=== PATIENT | female | born 1960 | race Hispanic/Latino ===

== ENCOUNTER → 2017-06-01 | Outpatient (CLI) | payer BC ==
--- NOTE | 2017-06-01 09:52 | Diagnostic Imaging Report ---
Left knee MRI without contrast. History: Knee pain. Sprain. Medial collateral ligament sprain. Fall. Decreased range of motion. Comparison: None. Technique: Multiplanar multi-sequence MRI of the knee without contrast. Findings: Medial compartment: There is a complex medial meniscus tear involving the posterior horn and body segments with a radial component at the posterior root best seen on coronal series 5 image 18. The medial meniscus is subluxed to the periphery. There is articular cartilage fraying in the procedure in the medial compartment with underlying bone marrow edema most pronounced at the periphery of the medial tibial plateau. There are peripheral marginal osteophytes. There is a high-grade partial tear involving the proximal medial collateral ligament best seen on coronal series 5 image 14 through 17. Lateral compartment: There is degeneration and fraying of the lateral meniscus. No lateral meniscus tear is seen. The lateral compartmental articular cartilage surfaces are thinned with region of fraying and fissuring. There are peripheral marginal osteophytes. The edema at the lateral femoral condyle extending more proximally along the distal shaft of the lateral femur. This is likely due to a contusion/stress response. No definite cortical fracture is seen. Intercondylar notch: The ACL and PCL are intact. Patellofemoral compartment: No chondromalacia or patellar dislocation. Extensor mechanism: The quadriceps and patellar tendons are normal. Other findings: There is a joint effusion and synovitis. There is no subluxation or avascular necrosis. IMPRESSION: Complex medial meniscus tear with degenerative arthrosis in the medial compartment of the knee. Additionally, there is a high-grade partial tear involving the proximal medial collateral ligament. Degeneration of the lateral meniscus with mild degenerative arthrosis. Bone marrow edema at the lateral femoral condyle extending more proximally along the distal shaft of the femur likely due to a contusion/stress response. Signed by: Dr. Jan Cooley M.D. on 06/01/2017 9:48 AM
== END ==
LOC: MRI 08:17
PROVIDERS: ATTEND Specialist
DX: S83.412A Sprain of medial collateral ligament of left knee, initial encounter (principal)

== ENCOUNTER → 2017-08-04 | Day surgery (SDC) | payer BC ==
[~2017-08-04] MED LIST: ALEVE220 M1 PO; BUPIVACAINE 0.5%/EPI 30 ML SDV INJ ONE; CEFAZOLIN SOD 2 GM/D5W 50ML 50 ML IV ONE; DEXAMETHASONE SOD PHOS INJ 4 MG/ML VIAL ONE; FENTANYL CITRATE/PF 100MCG/2 ML INJ ONE; IBUPROFEN200 MG PO; LIDOCAINE HCL 2% LOCAL INJ 5 ML SDV VIAL INJ ONE; MIDAZOLAM HCL 2 MG/2 ML VIAL ONE; ONDANSETRON HCL INJ 2 MG/ML VIAL ONE; PROPOFOL IV EMULSION 10 MG/ML 20 ML VIAL ONE; SEVOFLURANE INHAL SOLN 250 ML PEN BTL ONE
--- OUTSIDE RECORDS SUMMARY | 2017-08-04 05:46 | XMS REPORT ---
Author Author [facility] Address Unknown Phone Unavailable Care Team Providers Care Underwear Hemmer Name Role Phone ASIM FISHER Unavailable Unavailable Problems This patient has no known problems. Allergies, Adverse Reactions, Alerts This patient has no known allergies or adverse reactions. Medications This patient has no known medications. Results Test Description Test Time Test Comments Text Results Atomic Results Result Comments MRI KNEE LEFT WO [place] [address] Patient Name: PRACHI GUILLORY MR #: [id number] : 1960 Age/Sex: 57/F Req #: [id number] Adm Physician: Ordered by: ASIM FISHER MD Report #: [id number] Location: MRI Room/Bed: Procedure: [id number] MRI/MRI KNEE LEFT WO Exam Date: Exam Time: REPORT STATUS: Signed Left knee MRI without contrast. History: Knee pain. Sprain. Medial collateral ligament sprain. Fall. Decreased range of motion. Comparison: None. Technique: Multiplanar multi-sequence MRI of the knee without contrast. Findings: Medial compartment: There is a complex medial meniscus tear involving the posterior horn and body segments with a radial component at the posterior root best seen on coronal series 5 image 18. The medial meniscus is subluxed to the periphery. There is articular cartilage fraying in the procedure in the medial compartment with underlying bone marrow edema most pronounced at the periphery of the medial tibial plateau. There are peripheral marginal osteophytes. There is a high- grade partial tear involving the proximal medial collateral ligament best seen on coronal series 5 image 14 through 17. Lateral compartment: There is degeneration and fraying of the lateral meniscus. No lateral meniscus tear is seen. The lateral compartmental articular cartilage surfaces are thinned with region of fraying and fissuring. There are peripheral marginal osteophytes. The edema at the lateral femoral condyle extending more proximally along the distal shaft of the lateral femur. This is likely due to a contusion/stress response. No definite cortical fracture is seen. Intercondylar notch: The ACL and PCL are intact. Patellofemoral compartment: No chondromalacia or patellar dislocation. Extensor mechanism : The quadriceps and patellar tendons are normal. Other findings: There is a joint effusion and synovitis. There is no subluxation or avascular necrosis. IMPRESSION: Complex medial meniscus tear with degenerative arthrosis in the medial compartment of the knee. Additionally, there is a high-grade partial tear involving the proximal medial collateral ligament. Degeneration of the lateral meniscus with mild degenerative arthrosis. Bone marrow edema at the lateral femoral condyle extending more proximally along the distal shaft of the femur likely due to a contusion/ stress response. Signed by: Dr. Jan Cooley M.D. on 06/01/2017 9:48 AM Dictated By: JAN COOLEY MD, MD 7 Transcribed By: ANA on 06/01/17947 COPY TO: ASIM FISHER MD
--- NOTE | 2017-08-04 10:11 | Operative Report ---
DATE OF PROCEDURE: August 04, 2017 PREOPERATIVE DIAGNOSES 1. Left knee medial meniscus tear. 2. Left knee degenerative joint disease of the knee. POSTOPERATIVE DIAGNOSES 1. Left knee medial meniscus tear. 2. Left knee degenerative joint disease of the knee. 3. Left knee symptomatic medial shelf plica. OPERATIONS/PROCEDURES PERFORMED 1. The patient underwent a left knee examination under anesthesia. 2. Left knee arthroscopy. 3. Left knee partial medial meniscectomy. 4. Left knee chondroplasty of the medial femoral condyle, medial tibia plateau, patella, and trochlea, as well as resection of a medial shelf plica. [employer]Y SPECIALIST: None. ANESTHESIA: General endotracheal intubation anesthesia. IV FLUIDS: Per the anesthesia record. BRIEF DESCRIPTION OF THE PATIENT'S OPERATIVE PROCEDURE: Ms. Mccarty was taken to the operating room and placed in the supine position on the operating table. Following induction of general anesthesia, as well as endotracheal intubation, the patient's left lower extremity was examined under anesthesia. She was found to have a mild effusion within the knee joint, but otherwise a ligamentously stable knee. The patient's lower extremity was prepped and draped in a standard surgical fashion. A 2-portal technique was used to provide this patient arthroscopic evaluation of the knee joint. Examination of the suprapatellar pouch, medial and lateral gutters found no evidence of loose bodies. There was, however, evidence of chondromalacia of the patellar and trochlear surfaces. The scope was advanced in the medial compartment. Examination of the medial compartment demonstrated a tear in the posterior horn of the medial meniscus. There was also chondromalacia of the articulating surfaces. A combination of biting forceps and motorized shaver were used to resect the torn portion of the meniscus. Chondroplasties of the medial femoral condyle and medial tibial plateau were performed at this time. The scope was then advanced into the intracondylar notch. The anterior cruciate was identified and found to be intact. Scope was advanced in the lateral compartment and there was no significant pathology. Scope was then placed in the suprapatellar pouch, and there was a large and inflamed plica interdigitating between the patella and trochlear surfaces. This was resected arthroscopically. A chondroplasty of the patella and trochlea was performed at this time. The knee was then deflated of its sterile normal saline. Each of the portal sites were closed using 4-0 nylon suture. The portal sites as well as the knee itself were injected with 0.5% Marcaine with epinephrine. Sterile dressings were applied. The patient was then awakened and taken to the postanesthesia care unit in stable condition. Job#: [id number]
== END | disposition home or self-care (01) ==
LOC: OR 05:43
PROVIDERS: ATTEND Specialist
DX: S83.222A Peripheral tear of medial meniscus, current injury, left knee, initial encounter (principal); S83.412A Sprain of medial collateral ligament of left knee, initial encounter; M17.12 Unilateral primary osteoarthritis, left knee; M67.52 Plica syndrome, left knee; M22.42 Chondromalacia patellae, left knee; X58.XXXA Exposure to other specified factors, initial encounter; Z68.35 Body mass index [BMI] 35.0-35.9, adult
CPT/HCPCS: 29881; 93005; J1100; J2001; J2250; J2405